=== PATIENT | male | born 2005 | race Asian ===

== ENCOUNTER → 2024-01-20 07:07 | Outpatient (REF) | payer OTHER, SELFPAY | LOC: HWRAD 07:07 | PROVIDERS: ATTENDING PHYSICIAN Urology; FAMILY PHYSICIAN Pediatrics | DX: N50.812 Left testicular pain (principal) | CPT/HCPCS: 76870; 93976 ==

== ENCOUNTER 2024-03-30 10:37 | Emergency (ER) | payer OTHER, SELFPAY ==
[2024-03-30 10:43] VITALS: BP 116/85
[2024-03-30 11:04] LABS: Hematocrit 45.3 % (39.0-52.0); Hemoglobin 15.2 g/dL (13.0-18.0); Mean Corp Hgb Conc. 33.6 g/dL (33.0-37.0); Mean Corpuscular Hgb 27.9 pg (27.0-31.0); Mean Corpuscular Volume 83.1 fL (80.0-94.0); Mean Platelet Volume 9.5 fL (7.4-10.4); Platelet Count 143 10^3/uL (130-400); Red Blood Cell Count 5.45 10^6/uL (4.70-6.10); Red Cell Dist. Width 11.8 % (11.5-14.5); White Blood Cell Count 3.6 10^3/uL (4.8-10.8)
[2024-03-30 11:21] LABS: ALT (SGPT) 25 U/L (0-50); AST (SGOT) 33 U/L (17-59); Alkaline Phosphatase 44 U/L (38-126); Blood Urea Nitrogen 12 mg/dl (9-20); Calcium 8.8 mg/dl (8.4-10.2); Carbon Dioxide 30 mmol/L (22-30); Chloride 103 mmol/L (98-107); Glucose 101 mg/dl (70-99); Potassium 4.4 mmol/L (3.5-5.1); Sodium 142 mmol/L (135-145); Total Bilirubin 0.2 mg/dl (0.2-1.3); Total Protein 6.9 g/dl (6.3-8.2); eGFR > 60.00
[2024-03-30 11:51] LABS: % Basophils 0.6 % (0-2); % Eosinophils 0.6 % (0-6); % Immature Granulocytes 0.3 % (0-0.5); % Lymphocytes 54.5 % (20.5-51.1); % Monocytes 11.8 % (1.7-9.3); % Neutrophils 32.2 % (42.2-75.2); Absolute Lymphocytes 1.9 10^3/uL (1.2-3.4); Absolute Monocytes 0.4 10^3/uL (0.1-0.6); Absolute Neutrophils 1.2 10^3/uL (1.4-6.5); Nucleated Red Blood Cells % 0 % (-)
--- NOTE | 2024-03-30 12:59 | ED.GENMED ---
History of Present Illness
General
Chief Complaint: Cold/Flu/URI Symptoms
Source: patient
Exam Limitations: none
Time Seen by Provider: 03/30/24 12:58
Nursing documentation reviewed up to this point in time: agreed with
History of Present Illness
History of Present Illness:
This is a 18-year-old male with no past medical history presents emergency department today with concerns of persistent cough, intermittent chest pains, and intermittent fevers. Of note, he is diagnosed and tested positive with influenza 2 days
ago. Patient states that he was seen at urgent care. Patient was told to take cwym-pen-zlrwkow medications and states that he has not been improving. Patient states that he also feels very nauseous and has a decreased appetite. He is not given
any prescription for antinausea medication. Patient states that intermittent fevers which she has been taking ibuprofen and Tylenol for. Mom present with patient is requesting antibiotic therapy. He denies diarrhea. He does note an intermittent
abdominal pain. He also notes sore throat and ear pain. He denies any trouble swallowing.
Review of Systems
Review of Systems
All Other Systems: ROS reviewed and negative except as documented in HPI and ROS
Phy Exam
Physical Exam
Physical Exam:
General: Patient is well appearing and in no acute distress; non-toxic
Skin: Warm and dry, no rashes or lesions
Head: Normocephalic, atraumatic
Eyes: Sclera non-icteric. EOMs intact.
Neck: No cervical lymphadenopathy
Throat: Mild pharyngeal erythema uvula midline
Cardiac: Regular rate and rhythm, no murmurs, no tenderness to palpation of the external chest wall
Pulm: Normal respiratory effort, no wheezes, rales, or rhonchi
Abdomen: No abdominal tenderness to palpation
Neuro: CN II-XII intact, no focal neurologic deficits.
Psychiatric: Appropriate mood and affect.
Course
Orders/Labs/Results
Orders:
Orders
03/30/24 10:45
Chest [CR Chest - 2 Views ] Urgent
Comment:
Reason For Exam: sob
03/30/24 10:51
Complete Blood Count/With Diff Urgent
Comprehensive Metabolic Panel Urgent
Monotest Urgent
Comment: ADD ON
03/30/24 13:44
Add On- LAB Urgent
Tests Added?: mononucleosis
03/30/24 13:46
Acetaminophen [Tylenol] 650 mg PO NOW STA
Ondansetron HCl [Zofran] 4 mg PO NOW STA
03/30/24 13:52
Rapid Strep Group A Urgent
JUSTIN Source: Throat/Pharynx
Specimen Description:
Date Specimen was Collected: 03/30/24
Time Specimen was Collected: 13:47
03/30/24 14:08
Electrocardiogram (*1) Urgent
Reason for Study: Chest Pain
EKG- Treatment ONCE
Abnormal Lab Results
03/30/24
10:51
WBC 3.6 L 10^3/uL
(4.8-10.8)
Absolute Neuts (auto) 1.2 L 10^3/uL
(1.4-6.5)
Neutrophils % 32.2 L %
(42.2-75.2)
Lymphocytes % 54.5 H %
(20.5-51.1)
Monocytes % 11.8 H %
(1.7-9.3)
Glucose 101 H mg/dl
(70-99)
03/30/24 10:51
03/30/24 10:51
Vital Signs
Initial and Last Documented VS:
Initial Vital Signs
Temp Pulse Resp BP Pulse Ox
98.2 F 93 18 116/85 98
03/30/24 10:43 03/30/24 10:43 03/30/24 10:43 03/30/24 10:43 03/30/24 10:43
Last Documented Vital Signs
Temp Pulse Resp BP Pulse Ox
98.2 F 87 20 122/74 99
03/30/24 10:43 03/30/24 15:06 03/30/24 15:06 03/30/24 15:06 03/30/24 15:06
MDM/Problems Addressed
Differential Diagnosis Includes:
known influenza diagnosis

upper respiratory infection---influenza/covid/etc, pneumonia, pericarditis
MDM/Problems Addressed:
18-year-old male who presents emergency department today with concerns of generalized body aches, cough, intermittent chest pain/congestion. He was seen by urgent care for these symptoms 3 days ago and tested positive for influenza. He states that
he feels as though he is not getting better. Screening EKG normal sinus rhythm, no signs concerning for pericarditis or ischemia. Highly doubt viral myocarditis. Suspect intermittent chest pain secondary to chest wall pain from persistent coughing.
Strep negative, CXR negative for pneumonia. Suspect symptoms secondary to influenza. Prescribe Zofran for nausea. No indication for antibiotics at this time. Patient stable for discharge.
Chronic conditions affecting care:
n/a
*Pulse Oximetry
Patient hypoxic: no
*Critical Care Note
Total Time (30-74mins, 75-104mins- exclusive of procedures): Not Applicable
Data Reviewed
Review of Other/Old Records Reveals: Records (Reviewed [facility], no previous ER physician documentation to review, no discharge summary to review)
Source: patient and records
Patient Management
Escalation/DeEscalation of care consider admission/obs:
admit not indicated, patient stable for discharge
ED Attending Note
-
Portions of this chart may have been created with voice recognition software.� Occasional wrong word or��sound alike� substitutions may have occurred due to the inherent limitations of voice recognition software.
Discharge Plan
Departure
Patient Disposition: Home (Routine Discharge)
Date of Disposition: 03/30/24
Time of Disposition: 14:47
Patient with high blood pressure during this ER visit?: No
Condition: Good
Discharge Problem:
Influenza
Instructions: Fever, Adult (DC), Flu in adults - ED discharge instructions
Prescriptions:
New
ondansetron 4 mg tablet,disintegrating
4 mg PO Q4H PRN (Reason: nausea and vomiting) Qty: 8 0RF
Referrals:
Domenico Jasmine DO [Family Provider] -
Activity Restrictions/Additional Instructions:
Carmine has been sent to her pharmacy. You can take 1 tablet every 4 hours as needed for nausea and vomiting.
Please continue to alternate ibuprofen and Tylenol for your body aches.
Please return to emergency department for shortness of breath, persistent chest pain, swelling in the throat or trouble swallowing, confusion, lightheadedness, syncopal episodes, or any other signs or symptoms concern you.
Please follow-up with your primary care provider in 1 to 2 weeks for reassessment.
Interventions
Interventions:
*Risk Screen - Suicide Last Done: 03/30/24 10:43
*General Assessment Last Done: 03/30/24 10:43
*Neglect/Abuse Screening Last Done: 03/30/24 10:43
*ED COVID-19 Vaccine History Last Done: 03/30/24 13:00
*Nursing Disposition Last Done: 03/30/24 15:06
OZ-Aixtem-Edsultoilg Assessment Last Done: 03/30/24 13:00
ED- Pulmonary Assessment Last Done: 03/30/24 13:00
Discharge Date and Time
Discharge Date/Time: 03/30/24 15:07
Print Language: [id number]
[2024-03-30 13:00] VITALS: BP 114/68
[2024-03-30] MEDS: TYLENOL 650 MG PO (13:52)
[2024-03-30] MEDS: ZOFRAN 4 MG PO (13:52)
[2024-03-30 15:06] VITALS: BP 122/74
[2024-03-30 15:45] LABS: Monotest Negative (Negative)
== END 2024-03-30 15:07 | disposition home or self-care (01) ==
LOC: EMR 10:37
PROVIDERS: Emergency Medicine; EMERGENCY PHYSICIAN Emergency Medicine; FAMILY PHYSICIAN Pediatrics
DX: J11.1 Influenza due to unidentified influenza virus with other respiratory manifestations (principal); R11.0 Nausea
CPT/HCPCS: 99285; 71046; 80053; 85025; 86308; 87070; 87880; 93005